=== PATIENT | female | born 1995 | race Caucasian/White ===

== ENCOUNTER 2022-11-22 18:11 | Emergency (ER) | payer OTHER, SELFPAY ==
[2022-11-22 18:14] VITALS: BP 113/83; PULSE 93; RESP 17; TEMP 36.9; O2SAT 100
--- NOTE | 2022-11-22 19:11 | ED.SKABFB ---
HPI - Skin/Abscess/Foreign Bdy General Chief complaint: Skin/Abscess/Foreign Body Stated complaint: bug bite Time Seen by Provider: 11/22/22 19:00 History of Present Illness HPI narrative: 27-year-old female reports for evaluation for an infected mosquito bite to her right lower extremity. Patient states she got bit by mosquito 6 days ago, 3 days ago she developed redness and pain surrounding the mosquito bite. She denies fever, drainage, vomiting. Related Data Allergies Allergy/AdvReac Type Severity Reaction Status Date / Time No Known Allergies Allergy Verified 11/22/22 18:58 Review of Systems Review of Systems: CONSTITUTIONAL: Denies fever, chills EYES: Denies visual changes, redness, or discharge. ENT: Denies rhinorrhea, congestion, sore throat, or otalgia. CARDIOVASCULAR: Denies chest pain, palpitations, or edema. RESPIRATORY: Denies cough or dyspnea. GASTROINTESTINAL: Denies abdominal pain, nausea, vomiting, or diarrhea. GENITOURINARY: Denies dysuria or hematuria. SKIN: See HPI MUSCULOSKELETAL: Denies back pain, joint pain, or myalgia. NEUROLOGIC: Denies headache, numbness, dizziness, or weakness. PSYCHIATRIC: Denies anxiety or depression. Exam Narrative: GENERAL: Well-appearing, in no acute distress. Patient resting comfortably in exam bed. She is pleasant and conversational. HEAD: Normocephalic NECK: Supple. CHEST: No respiratory distress. Clear to auscultation, no adventitious breath sounds. HEART: Regular rate and rhythm. No murmur heard. Normal peripheral pulses. EXTREMITIES: Normal range of motion. No edema. SKIN: 1 mm circular lesion with a yellow roof and ~1cm surrounding blanching erythema to the anterior aspect of the right lower extremity. No spontaneous drainage, no fluctuance or induration. Full range of motion of extremity. DP pulse 2+. Cap refill is in 2. Sensation intact NEURO: No focal deficits. Alert and oriented x3. PSYCH: Normal mood and affect. Course Vital Signs Vital signs: Vital Signs Temperature 98.5 F 11/22/22 18:14 Pulse Rate 93 11/22/22 18:14 Respiratory Rate 17 11/22/22 18:14 Blood Pressure 113/83 11/22/22 18:14 Pulse Oximetry 100 11/22/22 18:14 Oxygen Delivery Room Air 11/22/22 18:14 Temperature 98.5 F 11/22/22 18:14 Pulse Rate 93 11/22/22 18:14 Respiratory Rate 17 11/22/22 18:14 Blood Pressure 113/83 11/22/22 18:14 Pulse Oximetry 100 11/22/22 18:14 Oxygen Delivery Room Air 11/22/22 18:14 MDM - Skin/Abscess/Foreign Bdy MDM Narrative Medical decision making narrative: 27-year-old female reports for evaluation for an infected mosquito bite to her right anterior lower extremity. Patient is nontoxic and well-appearing on exam. Exam is significant for the above. No areas of fluctuation or induration concerning for an abscess. No signs or symptoms of systemic infection. She is up-to-date on tetanus. Plan to treat with topical mupirocin and have the patient follow-up with PCP. Referral provided. Strict ED return precautions discussed. She is agreeable to plan verbalized understanding. Discharged in stable condition. Medical Records Attestation: I reviewed the patient's medical records. Lab Data Attestation: I reviewed the patient's lab results. Discharge Plan Discharge Clinical Impression: Bug bite Qualifiers: Encounter type: initial encounter Qualified Code(s): W57.XXXA - Bitten or stung by nonvenomous insect and other nonvenomous arthropods, initial encounter Patient Disposition: Home, Self-Care Condition: Stable Instructions: Antibiotic Form, Insect Bite or Sting (ED) Additional Instructions: Your evaluated emergency department for an infected mosquito bite. I started you on a topical antibiotic ointment, please use this as directed. Please take Tylenol and ibuprofen as needed for pain and follow-up with your primary care provider and referred you to within the following week. Return to the e
== END 2022-11-22 19:33 | disposition home or self-care (01) ==
LOC: ANHED 19:18
PROVIDERS: Emergency Provider Physician Assistant
DX: S90.561A Insect bite (nonvenomous), right ankle, initial encounter (principal); W57.XXXA Bitten or stung by nonvenomous insect and other nonvenomous arthropods, initial encounter
CPT/HCPCS: 99283

== ENCOUNTER 2023-04-17 15:39 | Emergency (ER) | payer OTHER, SELFPAY ==
[2023-04-17 16:04] VITALS: BP 106/78; PULSE 92; RESP 16; TEMP 36.6; O2SAT 97
--- NOTE | 2023-04-17 16:09 | PC.NURSE ---
pt wanted to know how long the wait to be seen is and informed this nurse does not know a time but only tell her the next person in line to be seen has been waiting 3 hr 15 mins. Pt then stated I'm not waiting this long.
== END 2023-04-17 18:02 | disposition left against medical advice (07) ==
PROVIDERS: PCP Nurse Practitioner
DX: R53.1 Weakness (principal)
CPT/HCPCS: 99199

== ENCOUNTER 2023-09-24 08:18 | Outpatient (CLI) | payer OTHER, SELFPAY ==
[2023-09-24 09:03] LABS: Hematocrit 36.2 % (37.0-47.0); Hemoglobin 12.1 g/dL (12.0-15.0); Mean Corpuscular HGB Conc 33.4 g/dl (32-36); Mean Corpuscular Hemoglobin 31.6 pg (26-34); Mean Corpuscular Volume 94.5 fl (80-100); Mean Platelet Volume 11.7 fl (7.4-10.4); Platelet Count Result 218 k/mm3 (150-375); Red Blood Count 3.83 M/mm3 (4.2-5.4); Red Cell Distribution Width 12.7 % (11.5-14.5); White Blood Count 6.3 K/mm3 (4.5-10.0)
[2023-09-24 09:23] LABS: Prealbumin 16.7 mg/dL (17.6-36.0)
[2023-09-24 09:25] LABS: Albumin Level 4.4 g/dL (3.5-5.1); Anion Gap 8 mmol/L (4-12); Blood Urea Nitrogen 20 mg/dL (7-17); Calcium 8.6 mg/dL (8.4-10.2); Carbon Dioxide 27 mmol/L (22-30); Chloride 102 mmol/L (98-107); Estimated Glomerular Filt Rate > 60; Glucose 55 mg/dL (65-110); Potassium 3.8 mmol/L (3.4-5.0); Sodium 137 mmol/L (137-145)
[2023-09-24 09:41] LABS: Iron 111 ug/dL (37-170)
[2023-09-28 08:59] LABS: Vitamin B1 15 nmol/L (8-30)
== END 2023-09-24 08:19 | disposition home or self-care (01) ==
LOC: ANHLAB 08:20
PROVIDERS: Visit Provider Surgery Plastic and Reconstructive Surgery
DX: R63.4 Abnormal weight loss (principal)
CPT/HCPCS: 36415; 80048; 82040; 83540; 84134; 84425; 85027

== ENCOUNTER 2023-10-16 01:30 | Day surgery (SDC) | payer OTHER, SELFPAY ==
[2023-10-10 14:54] VITALS: BMI 22.3
--- NOTE | 2023-10-10 15:01 | PC.NURSE ---
Report to the Outpatient Waiting Room, entrance under the green pavilion located off [facility], at time _0830__ on date _10/16/23__. Planned Procedure Time: ___1030__. Time changes happen often and if your time is changed the preop area will call you the afternoon before. - You and your visitor will be asked to self-screen and do not enter if you have any COVID symptoms. - A mask is optional within the hospital at this time. Patients may have clear liquids (water, carbonated beverages, clear teas, apple juice) until 3 hours prior to surgery with a maximum of 20 ounces. - No food from midnight until time of surgery - Infants may have breast milk until 4 hours before surgery, infant formula 6 hours prior to surgery. - Children will be allowed to drink immediately following surgery. If applicable, please bring a bottle or sippy cup to assist with drinking. Juice, water, soda, and popsicles are readily available. For infants on formula, please bring formula the day of surgery. Pacifiers are allowed. Take the following medications with a SIP of water the morning of surgery: ____NONE DO NOT STOP ANY OF YOUR OTHER PRESCRIPTION MEDICATIONS PRIOR TO SURGERY ?EXCEPT THE FOLLOWING Medications to discontinue per physician NONE Date to take last dose Please no make-up, nail romanian, hairspray, perfume, deodorant, or body powder the day of surgery. No jewelry (including any body piercings) or valuables the day of surgery, leave them at home. Please take a shower or bath the night before, or the morning of, surgery with an antibacterial soap. Wear comfortable, loose fitting clothing. Children are encouraged to wear pajamas. - Jewelry must be removed prior to entering the operating room. Rings and piercings that are not removed may be cut off. - The hospital will not accept responsibility for valuables. - Please leave all valuables, including medications, at home the day of surgery. If you are going home after surgery, a licensed class c truck driver must drive you home. - NO public transportation without another adult if you receive anesthesia. - We recommend that an adult stay with you for 24 hours following discharge. - We also recommend that you do not drive, make important decision, drink alcoholic beverages, or take any drugs that were not prescribed by your health care provider for at least 24 hours after your discharge time. For Pediatric surgeries, we recommend two adults accompany the child home. Follow any additional instructions given to you from your surgeon. If you or anyone in your household have experienced Covid symptoms in the past week, please notify your surgeon or the nurse liaison at the phone number below for possible testing. Telephone instructions given to _PATIENT_and asked if any additional questions and then verbalized understanding. Patient advised to call surgeon office or pre surgery nurse liaison [phone] if any additional questions.
[2023-10-16] VITALS (10 sets, daily range): BP systolic 103–117; BP diastolic 58–71; PULSE 57–77; RESP 12–19; TEMP 36.1–36.4; O2SAT 97–100
[2023-10-16] MEDS: LACTATED RINGERS 1,000 ML 30 ML IV CONT ×2 (08:45→12:56)
--- NOTE | 2023-10-16 10:13 | P.PNAN_ITS ---
Anes - Initial Pre Proc Eval Procedure: Operation Date: 10/16/23 10:30 Proposed Procedures p Bilateral Breast Augmentation - Jagdeep Mcintosh MD Date/Time: 10/16/23 10:13 Surgeon: Jagdeep Mcintosh MD Pre Op Diagnosis: micromastia Patient Data Age: 28 Gender: F Height: 1.63 m Weight: 59 kg Allergies Allergy/AdvReac Type Severity Reaction Status Date / Time No Known Allergies Allergy Verified 10/10/23 14:51 Home Medications Medication Instructions Recorded Confirmed Type escitalopram oxalate 10 mg tablet 10 mg PO HS 10/10/23 10/10/23 History spironolactone 100 mg tablet 100 mg PO HS 10/10/23 10/10/23 History Patient hx anesthesia problems: post op nausea/vomiting Family hx anesthesia problems: none Results Review: All pre-operative results and documents have been reviewed as part of the pre- operative evaluation. [facility] Social History Social History Tobacco type: e-cigarettes/vaping Additional smoking assessment comments: VAPED FOR 3 YRS- 09/09/23 Alcohol intake: current Drinks per week: 1 Substance use: current Substance use type: marijuana Living arrangements: with friend(s) Anes - Eval Final PreProcedure Day of Procedure 10/16/23 10:13 Patient weight: normal Heart: regular rate and rhythm Lungs: clear to auscultation Airway: Mallampati scale class II Neurological: alert and oriented Last oral intake: >/= 8 hours ASA classification: II Emergent: no Anesthetic plan: proceed Anesthesia type and monitoring: general LMA and standard monitoring Results Review: All pre-operative results and documents have been reviewed as part of the pre- operative evaluation. Informed Consent: The patient's anesthetic plan and its attendant risks and benefits were discussed with the patient/family/POA. Questions were solicited and answers provided to the satisfaction of the patient/family/POA.
[2023-10-16] MEDS: SCOPOLAMINE 1 MG PATCH 1 PATCH TRANSDERM (10:14)
--- NOTE | 2023-10-16 10:33 | WPDHPUPDATE1 ---
History and Physical Update Update Date/Time: 10/16/23 10:33 History and Physical has been reviewed, including an updated exam of the patient. There are NO changes in the patient's condition. Risks, benefits, and alternatives have been discussed and questions answered. Patient agrees to proceed with procedure.
--- NOTE | 2023-10-16 10:36 | W.PM.PROC2 ---
Procedure Note - Detailed Date of Procedure 10/16/23 Pre-op Diagnosis micromastia Post-op Diagnosis Same Procedure Performed Bilateral augmentation mammaplasty Surgeon Jagdeep Mcintosh MD Anesthesia General Findings Bilateral Juan Jose Maki SoftTouch 415 cc Right - REF# [id number] SN [id number] Left - REF# [id number] SN [id number] Description of Procedure She is here today for bilateral breast augmentation. Previously and again today the risks, benefits, alternatives were discussed in extensive detail. I wanted her to be very realistic about the risks involved as well as expectations. Discussed risks of tissue laxity and implant settling especially considering her history of significant weight loss. We discussed aftercare and what to monitor for. Made sure answered all of her questions to her satisfaction today and consent was obtained. Marked in the preoperative holding area with their verification. The patient was taken to the operating room placed supine on the operating table. Anesthesia was provided by anesthesiology. A surgical time-out was taken. We cleansed the skin and 1% lidocaine and 0.25% Marcaine with epinephrine was used anesthetize as a field block. She was prepped and draped in a standard sterile fashion. Tegaderm nipple Osuna were placed. A 15 blade used to make an incision along the inframammary fold. Dissection was continued at 45 degree angle until the chest wall as identified. I incised the pectoralis major along its inferior border and completely released the inferior border leaving the medial border intact. I created a subpectoral pocket in the appropriate dimensions based on our preoperative planning for the implant. I then copiously irrigated with saline solution and verified a strict hemostasis. Next the use a triple antibiotic and Betadine containing solution to irrigate the pocket. I washed my gloves with the triple antibiotic and Betadine solution. We washed the implant immediately upon opening it with this solution and only opened it when we needed it. I used implant funnel and no-touch technique. The implant was introduced into the pocket using the funnel. Having verified positioning of the implant this was closed using 2-0 PDS followed by 3-0 Monocryl in a running subcuticular 4-0 Monocryl followed by tissue glue. Fluffs and surgical bra were placed. Patient was awoke and taken to PACU without difficulty. All instrument sponge counts were correct at the end of the case. Estimated Blood Loss 20 Drains No Packing No Pathology None sent Complications No immediate complications Condition Stable Disposition PACU
[2023-10-16] MEDS: ceFAZolin 2 GM/D5W 50 ML 2 GM/50 ML BAG IVPB (10:43)
[2023-10-16] MEDS: BUPivacaine HCL 0.25% PF 30 ML VIAL INFILTRATE (10:43)
[2023-10-16] MEDS: NACL 0.9% IRRIG POUR BOTTLE 900 ML, GENTAMICIN SULFATE INJ 160 MG, ceFAZolin 2 GM, POVI... IRRIGATION (10:43)
[2023-10-16] MEDS: TRANEXAMIC ACID 1,000MG/ISO100 1,000 MG/100 ML BAG 200 MG IVPB (10:55)
[2023-10-16] MEDS: LIDO 1%/EPINEPHRINE 1:100,000 50 ML VIAL 30 ML INFILTRATE (11:05)
[2023-10-16] MEDS: fentaNYL CITRATE INJ (*CRX) 100 MCG/2 ML VIAL 25 MCG IV PUSH ×4 (12:13→13:07)
[2023-10-16] MEDS: oxyCODONE HCL (*CRX) 5 MG TAB IR PO (13:04)
== END 2023-10-16 14:00 | disposition home or self-care (01) ==
PROVIDERS: Visit Provider Surgery Plastic and Reconstructive Surgery
PROC: (CPT 19325; principal; 2023-10-16 10:30)
DX: Z41.1 Encounter for cosmetic surgery (principal); N64.82 Hypoplasia of breast; Z87.891 Personal history of nicotine dependence; F12.90 Cannabis use, unspecified, uncomplicated
CPT/HCPCS: 19325; A9270; J0690; J1100; J1200; J1580; J2250; J2405; J2704; J3010; J7120